=== PATIENT | female | born 1990 | race Caucasian/White ===

== ENCOUNTER 2021-01-14 10:04 | Observation (INO) | payer BC, OTHER ==
[2021-01-14] MEDS ORDERED: PREN1TAB71 OR ×2 (10:31)
== END 2021-01-14 11:23 | disposition home or self-care (01) ==
LOC: LDRP 10:04
PROVIDERS: ADMIT Specialist; ATTEND Specialist
DX: O48.0 Post-term pregnancy (principal); Z3A.40 40 weeks gestation of pregnancy
CPT/HCPCS: 59025; 76818; 81002; G0378

== ENCOUNTER 2021-01-16 13:28 | Observation (INO) | payer BC ==
[~2021-01-16] VITALS: Ht 170.2 cm; Wt 90.7 kg
[~2021-01-16 13:28] MED LIST: PREN1TAB71 OR
== END 2021-01-16 15:05 | disposition home or self-care (01) ==
LOC: LDRP 13:28
PROVIDERS: ADMIT Specialist; ATTEND Specialist
DX: O48.0 Post-term pregnancy (principal); O62.9 Abnormality of forces of labor, unspecified; Z3A.40 40 weeks gestation of pregnancy
CPT/HCPCS: 59025; 76818; 81002; G0378

== ENCOUNTER 2021-01-18 13:02 | Inpatient (IN) | payer BC ==
[~2021-01-18] VITALS: Ht 170.2 cm; Wt 90.7 kg
[2021-01-18] MEDS ORDERED: PROMETHAZINE HCL 25 MG/ML 1ML IV PRN (15:15)
[2021-01-18] MEDS ORDERED: WITCH HAZEL-GLYCERIN PAD TOP PRN (15:15)
[2021-01-18] MEDS ORDERED: BUTORPHANOL TARTRATE 2 MG/1 ML VIAL IV PRN (15:15)
[2021-01-18] MEDS ORDERED: PHISODERM TOP SOLN 240ML BTL TOP PRN (15:15)
[2021-01-18] MEDS ORDERED: DERMOPLAST 60ML BOTTLE TOP PRN (15:15)
[2021-01-18] MEDS ORDERED: LACTATED RINGER'S 1,000 ML IV SCH (15:15)
[2021-01-18 15:39] LABS: Basophils # (auto) 0 10 ^3/uL (0-0.2); Basophils % (auto) 0.2 % (0.0-2.0); Eosinophils # (auto) 0 10 ^3/uL (0-0.8); Eosinophils % (auto) 0.2 % (0.0-7.0); Hemoglobin 13.2 g/dL (12.2-16.2); Lymphocytes # (auto) 1.5 10 ^3/uL (0.4-5.4); Lymphocytes % (auto) 16.2 % (10.0-50.0); Mean Corpuscular Hemoglobin 31.7 pg (28.0-32.0); Mean Corpuscular Hgb Conc. 34.7 g/dL (32.0-36.0); Mean Corpuscular Volume 91.1 fL (80.0-100.0); Monocytes # (auto) 0.7 10 ^3/uL (0-1.3); Monocytes % (auto) 7.4 % (0.0-12.0); Neutrophils # (auto) 7.2 10 ^3/uL (1.6-8.6); Nucleated Red Blood Cells % 0.1 %; Platelet Count (auto) 184 10^3/uL (140-450); Red Blood Cells 4.17 10^6/uL (4.0-5.20); White Blood Cell 9.5 10^3/uL (4.4-10.8)
[2021-01-18] MEDS ORDERED: LIDOCAINE 2%HCL (LOCAL ANESTH.) INJ 20ML MDV IJ PRN (15:45)
[2021-01-18 15:54] LABS: INR 0.93 (0.9-1.15); Partial Thromboplastin Time 27.9 sec (23.0-31.2)
[2021-01-18 16:00] LABS: Calcium 8.6 mg/dL (8.5-10.1); Potassium 3.8 mmol/L (3.5-5.1)
[2021-01-18 16:04] LABS: BUN/Creatinine Ratio 13.2; Bilirubin, Total 0.3 mg/dL (0.2-1.0); Total Protein 6.8 g/dL (6.4-8.2)
[2021-01-18] MEDS ORDERED: LACT. RINGERS/OXYTOCIN 20UNITS 1,000 ML IV ONE (16:15)
[2021-01-18 16:23] LABS: Urine Bacteria NONE SEEN /hpf (None Seen); Urine Blood Negative /uL (Negative); Urine Specific Gravity 1.006 (1.001-1.035); Urine WBC <1 /hpf (0 - 5)
[2021-01-18] MEDS: miSOPROStol 50 MCG per PRE-CUT 1/2 TAB PO PRN ×2 (16:50→21:09)
[2021-01-18] MEDS ORDERED: PROMETHAZINE HCL 25 MG/ML 1ML IM ONE (21:50)
[2021-01-18] MEDS: BUTORPHANOL TARTRATE 2 MG/1 ML VIAL IV PRN (21:50)
[2021-01-18] MEDS: ceFAZolin 1GM/50ML 50 ML IV SCH (22:55)
[2021-01-19] MEDS: miSOPROStol 50 MCG per PRE-CUT 1/2 TAB PO PRN (00:59)
[2021-01-19] MEDS: BUTORPHANOL TARTRATE 2 MG/1 ML VIAL IV PRN (01:29)
[2021-01-19] MEDS ORDERED: LIDOCAINE HCL 2 %PF INJ 10ML AMP IJ ONE (02:00)
[2021-01-19] MEDS ORDERED: LACTATED RINGER'S 1,000 ML IV ONE (02:00)
[2021-01-19] MEDS ORDERED: SODIUM CHLORIDE 0.9% 500 ML IV PRN ×2 (02:00→03:30)
[2021-01-19] MEDS ORDERED: ROPIVACAINE HCL 100 ML EPI SCH (02:00)
[2021-01-19] MEDS ORDERED: fentaNYL CITRATE 100 MCG/2 ML VL IV ONE ×2 (02:00→03:30)
[2021-01-19] MEDS ORDERED: ePHEDrine SULFATE 50 MG/ML AMP IV ONE ×2 (02:00→03:30)
[2021-01-19] MEDS ORDERED: ROPIVACAINE HCL 400mg/200ml BAG (2mg/ml) ONE (02:17)
[2021-01-19] MEDS ORDERED: LIDOCAINE 2%HCL (LOCAL ANESTH.) INJ 20ML MDV IJ ONE (03:30)
[2021-01-19] MEDS ORDERED: LACTATED RINGER'S 500 ML IV ONE (03:30)
[2021-01-19] MEDS ORDERED: ROPIVACAINE HCL 200 ML EPI SCH (03:30)
[2021-01-19] MEDS ORDERED: NALOXONE HCL 0.4 MG/ML VIAL IV ONE (03:30)
[2021-01-19] MEDS ORDERED: LACT. RINGERS/OXYTOCIN 20UNITS 1,000 ML IV SCH (05:30)
[2021-01-19] MEDS ORDERED: TERBUTALINE SULFATE 1 MG/ML 1ML VIAL SC ONE (05:30)
[2021-01-19] MEDS: ceFAZolin 1GM/50ML 50 ML IV SCH (06:44)
[2021-01-19] MEDS ORDERED: IBUPROFEN 600 MG TAB PO PRN (08:00)
[2021-01-19] MEDS ORDERED: ACETAMINOPHEN 325 MG TAB PO PRN (08:00)
[2021-01-19 15:30] VITALS: BP 116/56
[2021-01-19 19:00] VITALS: BP 111/56
[2021-01-19 23:00] VITALS: BP 112/55
[2021-01-20 03:00] VITALS: BP_SYST 109; BP_SYST 112; BP_DIAS 55; BP_DIAS 56
[2021-01-20 07:30] VITALS: BP 117/71
[2021-01-20 11:30] VITALS: BP 90/53
[2021-01-20 16:00] VITALS: BP 117/68
== END 2021-01-20 16:00 | disposition home or self-care (01) | DRG 807 ==
LOC: LDRP 13:02 → OBSVTOIN 15:14 → LDRP 15:50
PROVIDERS: ADMIT Specialist; ATTEND Specialist
PROC: 3E0P7VZ Introduction of Hormone into Female Reproductive, Via Natural or Artificial Opening (ICD-10-PCS; 2021-01-18)
PROC: 10E0XZZ Delivery of Products of Conception, External Approach (ICD-10-PCS; principal; 2021-01-19)
PROC: 3E0R3BZ Introduction of Anesthetic Agent into Spinal Canal, Percutaneous Approach (ICD-10-PCS; 2021-01-19)
PROC: 00HU33Z Insertion of Infusion Device into Spinal Canal, Percutaneous Approach (ICD-10-PCS; 2021-01-19)
DX: O80 Encounter for full-term uncomplicated delivery (principal); Z37.0 Single live birth; Z3A.40 40 weeks gestation of pregnancy; Z20.822 Contact with and (suspected) exposure to COVID-19
CPT/HCPCS: 36415; 59025; 59409; 62282; 76818; 80053; 81001; 81002; 84112; 85025; 85610; 85730; 86592; 86850; 86900; 86901; 87426; 96360; 96361; 96372; 96374; 96375; G0378; J0690; J2590